=== PATIENT | female | born 1945 | race Caucasian/White ===

== ENCOUNTER 2023-10-04 12:50 | Outpatient (AMB) | payer OTHER, SELFPAY ==
--- NOTE | 2023-10-04 13:24 | A.SPINEOV_ITS ---
Intake Intake Visit Reasons: cervical stenosis Intake Note: Ms. Centeno is here today c/o weakness that radiates to calves. Ordering Machine Operator Required: No Assessment & Plan Assessment & Plan (1) Peripheral vascular disease with claudication: Code(s): I73.9 - Peripheral vascular disease, unspecified Plan Dear colleague Thank you for referring Hiral Centeno to the office today with a chief complaint of bilateral calf pain with activity. HPI: This 78-year-old female is complaining of bilateral calf pain with walking and cycling. Standing or sitting down will improve the symptoms. No weakness, no numbness. PMH: Diabetes, COPD, asthma, neuropathy Medications: Albuterol, metformin Allergies: NKDA Social history: Nonsmoker Physical Exam: Pleasant female. On inspection she has varicose veins of her legs. No pulsations palpable. Straight leg raise negative. No sensory or motor changes. Radiological Studies: MRI done at [facility] on 07/13/2023 shows multilevel degenerative disc disease and a mild degenerative scoliosis around L3-4, mild central stenosis L3-4 L4-5 and a right L5 S1 disc bulge compressing the right S1 nerve root Impression/Plan: This patient's symptoms are most compatible with vascular claudication. I will refer her for a duplex to confirm the diagnosis . I will see her back after the test is done Thank you for allowing me to participate in your patients care. total time spent was 50 minutes in counseling ,coordination of plan, personal review of imaging, and subsequent plan Trevor Estrada MD, PhD Spine Fellowship Trained Neurosurgeon Director, [facility] Orders: Orders US arterial duplex LE BI Today I73.9 - Peripheral vascular disease, unspecified Coding Level of Care Code New Pt Level 4 (42631) Diagnoses Peripheral vascular disease with claudication I73.9
== END 2023-10-04 14:26 | disposition home or self-care (01) ==
PROVIDERS: Referring Provider Psychiatry & Neurology Neurology; Visit Provider Neurological Surgery
DX: I73.9 Peripheral vascular disease, unspecified (principal)
CPT/HCPCS: 99204

== ENCOUNTER → 2023-10-04 12:50 | Outpatient (BNVA) | payer OTHER, SELFPAY | PROVIDERS: Visit Provider Neurological Surgery | DX: I73.9 Peripheral vascular disease, unspecified (principal) | CPT/HCPCS: 99202 ==

== ENCOUNTER 2023-11-01 14:16 | Outpatient (AMB) | payer OTHER, SELFPAY ==
--- NOTE | 2023-11-01 14:45 | A.SPINEOV_ITS ---
Intake Intake Visit Reasons: Duplex arterial US f/u Intake Note: Ms. 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 We decided to have a telephone encounter next Monday at 03:45 to discuss the results. Trevor Estrada MD, PhD Spine Fellowship Trained Neurosurgeon Director, [facility] [place] [facility] Coding Level of Care Code Est Pt Level 1 (54259) Diagnoses Peripheral vascular disease with claudication I73.9
== END 2023-11-01 15:09 | disposition home or self-care (01) ==
PROVIDERS: Visit Provider Neurological Surgery
DX: I73.9 Peripheral vascular disease, unspecified (principal)

== ENCOUNTER → 2023-11-01 14:16 | Outpatient (BNVA) | payer OTHER, SELFPAY | PROVIDERS: Visit Provider Neurological Surgery | DX: I73.9 Peripheral vascular disease, unspecified (principal) | CPT/HCPCS: 99211 ==

== ENCOUNTER → 2023-11-08 16:23 | Outpatient (BNVA) | payer OTHER, SELFPAY | PROVIDERS: Visit Provider Neurological Surgery | DX: I73.9 Peripheral vascular disease, unspecified (principal) ==

== ENCOUNTER 2023-11-28 13:34 | Outpatient (AMB) | payer OTHER, SELFPAY ==
--- NOTE | 2023-11-28 14:02 | MHC.OFFVIS ---
Vital Signs 11/28/23 14:03 Height 5 ft Weight 132 lb BMI 25.8 Intake Visit Reasons: Vascular claudication? Intake Note: New patient presents for s/p arterial US 10/24/23 at [facility]. Patient states she has bilateral leg pain. Can only walk 100-200 feet before she has to stop. Has difficulty going up and down stairs, ambulates with a cane. Was biking around 10 miles but had to stop two years ago due to her leg pain. No swelling. 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 Accompanied by: Self / Same As Patient Allergies house dust Allergy (Mild, Verified 11/28/23 14:10) Sneezing HPI HPI Vascular claudication?: Details: Very pleasant 78-year-old female presents for evaluation regarding claudication. She would actually seen neurosurgery who nguyen Barnes recognized claudication. She reports that she has pain after walking 200 ft she reports it is left more so than right. She also had workup done regarding her spine which demonstrates degenerative disc disease L3-4 and L4-5. She has had noninvasive arterial testing as well. She now presents to us for vascular evaluation Review of Systems Const All systems reviewed & are unremarkable except as noted in HPI and below Reports no additional complaints ENT Reports Normal hearing present Card Denies chest pain, Denies chest pain at rest, Denies chest pain with activity and Denies pedal edema Resp Denies cough GI Denies abdominal pain Musc Denies abnormal gait, Denies muscle cramps and Denies radiating pain into limb Skin/Breast Denies skin ulcer and Denies wounds Neuro Reports Normal hearing present and Denies abnormal gait Psych Reports no additional complaints Physical Exam Vital Signs: BMI result Body Mass Index 25.8 Const General: cooperative, healthy appearing and comfortable Orientation/consciousness: oriented to person, oriented to place and oriented to time HEENT Head: Yes normal to inspection Neck Neck: Yes normal visual inspection Carotids: no bruits Chest Chest palpation & inspection: normal inspection of the chest Resp Effort & Inspection: normal respiratory effort and able to speak in complete sentences Auscultation: clear to auscultation bilaterally, no crackles, no rales, no rhonchi and no wheezes Cardio Rate: regular rate Rhythm: regular rhythm Heart sounds: S1 normal heart sound present and S2 normal heart sound present Bruits: no carotid bruits Peripheral pulses: Peripheral pulses 2+ throughout GI Inspection: Yes normal to inspection Skin Wounds: no wounds Hair: normal Neuro General: oriented to person, oriented to place and oriented to time Cranial nerves: Yes CN's II-XII intact bilaterally and Yes Normal hearing present Cognition (Neuro): normal cognition Motor exam (neuro): 5/5 motor strength present throughout Extrem Other: venous exam: No significant superficial varicosities or spider telangiectasias, minimal edema General: No clubbing, No cyanosis and No edema Psych Appearance: grossly normal Mental Status: mental status grossly normal Speech and movement: Normal speech and movement present Results Reviewed Results Reviewed: Noninvasive arterial testing dated 10/24/2023 demonstrates VEDA on the right of 0.69 and on the left of 0.43 concern is of SFA disease. Written report reviewed only as it is a report from [facility]. Assessment & Plan Assessment & Plan (1) Peripheral vascular disease with claudication: Code(s): I73.9 - Peripheral vascular disease, unspecified Category: Medical Plan: Patient notes leg pain when walking distances. I have discussed the pathophysiology of peripheral vascular disease with the patient. I have also discussed risk factor modification. I have reviewed the patient's arterial testing which reveals left side VEDA of 0.43 with concerns of SFA disease. the patient would benefit from a left leg endovascular peripheral angiogram with possible angioplasty, stent, and/or atherectomy. This has been discussed in detail with the patient along with risks, benefits, and complications. This includes but is not limited to bleeding, infection, heart attack, need for emergent surgical repair, limb ischemia, blood vessel damage, bleeding, puncture, kidney injury, bruising, allergic reaction, and skin reaction. The patient demonstrates a clear understanding. We will schedule for the next appropriate time. Thank you for allowing us to assist in this patient's care. Coding Level of Care Code New Pt Level 4 (55318) Diagnoses Peripheral vascular disease with claudication I73.9
[2023-11-28 14:03] VITALS: BMI 25.8
== END 2023-11-28 14:40 | disposition home or self-care (01) ==
PROVIDERS: Visit Provider Surgery Vascular Surgery
DX: I73.9 Peripheral vascular disease, unspecified (principal)
CPT/HCPCS: 99204

== ENCOUNTER → 2023-11-28 13:34 | Outpatient (BNVA) | payer OTHER, SELFPAY | PROVIDERS: Visit Provider Surgery Vascular Surgery | DX: I73.9 Peripheral vascular disease, unspecified (principal) | CPT/HCPCS: 99202 ==

== ENCOUNTER 2023-12-13 05:56 | Day surgery (SDC) | payer OTHER, SELFPAY ==
[2023-12-13] VITALS (12 sets, daily range): BP systolic 135–173; BP diastolic 62–76; PULSE 67–76; RESP 16–20; TEMP 36.2–36.5; O2SAT 93–96; BMI 26.4
[2023-12-13 07:06] LABS: MANUAL DIFF FLAG NO
[2023-12-13 07:08] LABS: Basophils Absolute Auto 0.1 X10*3/uL (0.0-0.2); Basophils Percent Auto 1.2 % (0-2); Eosinophils Absolute Auto 0.2 X10*3/uL (0.0-0.4); Eosinophils Percent Auto 4.2 % (0-4); Hematocrit 39.4 % (37.0-47.0); Hemoglobin 13.1 g/dl (12.0-16.0); Imm Gran Abs Auto 0.01 X10*3/uL (0.00-0.03); Imm Gran Pct Auto 0.2 % (0.0-0.4); Lymphocytes Percent Auto 20.5 % (20-40); Mean Corpuscular HGB Conc 33.2 g/dl (31.0-35.0); Mean Corpuscular Hemoglobin 31.7 pg (27.0-33.0); Mean Corpuscular Volume 95.4 fL (80.0-98.0); Mean Platelet Volume 11.7 fL (9.4-12.3); Monocytes Absolute Auto 0.5 X10*3/uL (0.1-1.2); Monocytes Percent Auto 9.5 % (2-11); Neutrophils Absolute Auto 3.2 x10*3/uL (2.0-8.3); Neutrophils Percent Auto 64.4 % (45-73); Platelet Count 228 X10*3/uL (160-400); Red Blood Count 4.13 X10*6/uL (4.20-5.50)
[2023-12-13 07:12] LABS: Glucose, Whole Blood 150 mg/dL (60-115)
[2023-12-13 07:25] LABS: Blood Urea Nitrogen 21 mg/dL (9-16); Creatinine Clr Calc Pharmacy 81.9; Estimated Glomerular Filt Rate > 60
--- NOTE | 2023-12-13 09:37 | P.OP_ITS ---
Operative Note Operative Note Date of Service: 12/13/23 Narrative: Angiogram report from [facility] Preoperative diagnosis: Atherosclerosis of left lower extremity with activity limiting claudication Postoperative diagnosis: Same Procedure: 1. Ultrasound-guided right common femoral access 2. Aortogram with left lower extremity runoff 3. Left SFA plasty and stent Surgeon:Valentino Kimball M.D., FACS, RPVI Roll Cleaner:None Anesthesia: Local with moderate conscious sedation. Total intraservice moderate sedation time was 77 minutes. I monitored the patient's level of consciousness and physiologic status continuously throughout the procedure. Specimens:none Drains:none Estimated blood loss: Less than 10 ml Implant: Medtronic Ev 3 stent 6 x 200; 6 x 150 and Medtronic Impact DCB 6 x 250; 6 x 120 Indications: Complex 78-year-old female with severe lower extremity pain. Had been seen by Neurosurgery and worked up. Recognized to have left SFA disease. Now presents for endovascular intervention The patient has signed the informed consent after reviewing risks, complications, benefits, and alternatives previously discussed with the patient. The patient was given the opportunity to ask any additional questions or voice any concerns. All questions were answered to the patient's satisfaction. Procedure in detail: Patient was brought to the angiography suite prior to which a time-out was called for patient identification and site verification. Bilateral groins were prepped and draped in the standard surgical fashion. Under ultrasound guidance right common femoral was punctured with micro puncture needle and wire. Subsequently a precision 5 Vincentian sheath was then placed. Bentson wire was advanced to the level of the aorta. Vincentian Flush catheter was brought up and parked at the level of the renal arteries. Aortogram was then undertaken. Catheter was brought down to the level of the iliac bifurcation. Iliacs were subsequently imaged. Catheter was then brought in up and over to the left side SFA. Runoff study was then undertaken. It was recognized that she had a total SFA occlusion. We advanced a Glidewire Advantage wire. We then placed an up and over 5 Vincentian sheath. We were then able to traverse the glidewire Advantage followed by trail Blazer catheter through the entire length of the SFA. The entire SFA was totally occluded. We then administered 4000 units of systemic heparin. After 5 minutes of circulation time we initially plasty the entire length of the SFA with a regular 6 x 150 balloon. This required multiple insufflations. Completion angiogram demonstrated poor result with moderate stenosis. We then placed more distally a 6 x 200 stent. And proximal to that we then placed a 6 x 150 stent. This covered the entire length of the SFA. Post post stent deployment we then deployed a drug coated balloon. The 1st 1 was a 6 x 250. This was brought into position in under 3 minutes and insufflated for a total of 3 minutes in duration. We then deployed a 6 x 120 drug coated balloon. Once again this was more proximal in a similar manner we brought this in an under 3 minutes and insufflated for a total of 3 minutes in duration. Completion angiogram demonstrated excellent result with good flow through the entire SFA in good three-vessel runoff. At this point catheter wire sheath was brought back to the ipsilateral side. A Celt closure device was deployed through a 6 Vincentian smaller sheath. Adequate hemostasis was achieved. Patient tolerated the procedure well. Returned to recovery with stable vitals. Interpretation of films: 1. Ultrasound demonstrates appropriate femoral puncture. Image of which was saved. 2. Aortogram demonstrates appropriate caliber aorta. Minimal disease. Appropriate take-off of the renals. 3. Iliac images demonstrate no significant disease but small in caliber. Right common iliac was extremely tortuous 4. Left Leg Common femoral artery: No significant disease Profundus Femoris: No significant disease Superficial femoral artery: Total occlusion from origin small reconstitution at Darrius's canal Hernandez occludes and reconstitutes at the P1 segment of the popliteal; m completion angiogram demonstrated excellent result with patent SFA Popliteal artery (p1,p2,p3): Patent Anterior tibial artery: Patent with good flow to foot Peroneal artery: Patent with good flow to the foot Posterior tibial artery: Patent with good flow to the foot Dorsalis pedis/plantar arch: Complete pedal arch Conclusion: 1. Successful left SFA stent and plasty with DCB. 2. Anticoagulation status: Patient will require 6 months of aspirin and Plavix. Patient had extremely poor pain threshold. Should further intervention be required may require tertiary level care This note is constructed using voice recognition software. While every effort has been made to ensure accuracy, network program manager errors may have been included. Thank you for allowing me to participate in the care of your patient. Yours sincerely, Valentino Kimball MD, FACS, R.P.V.I.
[2023-12-13] MEDS: Morphine Sulfate 2 MG/ML CARTRIDGE 4 MG IVPUSH (09:54)
== END 2023-12-13 12:15 | disposition home or self-care (01) ==
PROVIDERS: PCP Family Medicine; Visit Provider Surgery Vascular Surgery
DX: E11.51 Type 2 diabetes mellitus with diabetic peripheral angiopathy without gangrene (principal); I70.212 Atherosclerosis of native arteries of extremities with intermittent claudication, left leg; M79.605 Pain in left leg; M79.604 Pain in right leg; R26.2 Difficulty in walking, not elsewhere classified; Z99.89 Dependence on other enabling machines and devices; M51.36 Other intervertebral disc degeneration, lumbar region
CPT/HCPCS: 36415; 37226; 76937; 82565; 82947; 84520; 85025; 99152; 99153; A4364; C1725; C1760; C1769; C1876; C1887; C1894; C2623; J1644; J2250; J2270; J2310; J3010; Q9967

== ENCOUNTER → 2023-12-13 05:56 | Outpatient (BNV) | payer OTHER, SELFPAY | PROVIDERS: PCP Family Medicine; Visit Provider Surgery Vascular Surgery | DX: I70.212 Atherosclerosis of native arteries of extremities with intermittent claudication, left leg (principal) | CPT/HCPCS: 37226; 75625; 75710; 76937; 99152 ==

== ENCOUNTER 2023-12-26 10:46 | Outpatient (AMB) | payer OTHER, SELFPAY ==
--- NOTE | 2023-12-26 10:54 | A.OFFVIS_ITS ---
Intake Visit Reasons: 2 week follow up left leg angiogram Intake Note: Patient presents for 2 week follow up angio performed on 12/13/23. Left leg feels good . Says she is walking everyday, gets tired but does not believe it is due to the angio. Accompanied by: Self / Same As Patient Allergies house dust Allergy (Mild, Verified 12/26/23 10:57) Sneezing HPI HPI 2 week follow up left leg angiogram: Details: Extremely complex 78-year-old female presents for follow-up status post left SFA plasty and stent placement. She reports that the left leg is doing better. She reports being on aspirin and Plavix. Of note she did have an extremely difficult time with sedation during the procedure. She did make multiple phone calls postoperatively to the office regarding medications in issues not related to her procedure. She now presents for follow-up. [facility] Medical History Diabetes mellitus COPD (chronic obstructive pulmonary disease) Asthma Review of Systems Const All systems reviewed & are unremarkable except as noted in HPI and below Reports no additional complaints ENT Reports Normal hearing present Card Denies chest pain, Denies chest pain at rest, Denies chest pain with activity and Denies pedal edema Resp Denies cough GI Denies abdominal pain Musc Denies abnormal gait, Denies muscle cramps and Denies radiating pain into limb Skin/Breast Denies skin ulcer and Denies wounds Neuro Reports Normal hearing present and Denies abnormal gait Psych Reports no additional complaints Physical Exam Const General: cooperative, healthy appearing and comfortable Orientation/consciousness: oriented to person, oriented to place and oriented to time HEENT Head: Yes normal to inspection Neck Neck: Yes normal visual inspection Carotids: no bruits Chest Chest palpation & inspection: normal inspection of the chest Resp Effort & Inspection: normal respiratory effort and able to speak in complete sentences Auscultation: clear to auscultation bilaterally, no crackles, no rales, no rhonchi and no wheezes Cardio Other: Bilateral DP signal Rate: regular rate Rhythm: regular rhythm Heart sounds: S1 normal heart sound present and S2 normal heart sound present Bruits: no carotid bruits GI Inspection: Yes normal to inspection Skin Wounds: no wounds Hair: normal Neuro General: oriented to person, oriented to place and oriented to time Cranial nerves: Yes CN's II-XII intact bilaterally and Yes Normal hearing present Cognition (Neuro): normal cognition Motor exam (neuro): 5/5 motor strength present throughout Extrem Other: venous exam: No significant superficial varicosities or spider telangiectasias, minimal edema General: No clubbing, No cyanosis and No edema Psych Appearance: grossly normal Mental Status: mental status grossly normal Speech and movement: Normal speech and movement present Assessment & Plan Assessment & Plan (1) Peripheral vascular disease with claudication: Comment: 12/13/2023 - left SFA plasty and stent Code(s): I73.9 - Peripheral vascular disease, unspecified Category: Medical Plan: In short it was a complex SFA occlusion. We were able to plasty and stent this. She has been on aspirin and Plavix. I am not sure she is compliant with this. She was actually resisting and arguing about taking aspirin and states that her sign designer recommends against this. She is complaining about her right leg. I will schedule her for 3 month surveillance ultrasound. I am extremely hesitant to re- intervene on her. Should there be further issues she may be better served at tertiary care. We will continue to follow-up to ensure that her stenting remains patent. Thank you for allowing us to assist in her care. Orders: Orders US arterial duplex LE BI 3 Months I73.9 - Peripheral vascular disease, unspecified Coding Level of Care Code Est Pt Level 4 (42211) Diagnoses Peripheral vascular disease with claudication I73.9
== END 2023-12-26 11:16 | disposition home or self-care (01) ==
PROVIDERS: Visit Provider Surgery Vascular Surgery
DX: I73.9 Peripheral vascular disease, unspecified (principal)
CPT/HCPCS: 99214

== ENCOUNTER → 2023-12-26 10:46 | Outpatient (BNVA) | payer OTHER, SELFPAY | PROVIDERS: Visit Provider Surgery Vascular Surgery | DX: I73.9 Peripheral vascular disease, unspecified (principal) | CPT/HCPCS: 99212 ==